=== PATIENT | female | born 1980 | race Caucasian/White ===

== ENCOUNTER 2016-07-05 12:53 | Emergency (ER) | payer OTHER ==
[~2016-07-05] VITALS: Ht 160 cm; Wt 61.6 kg
[~2016-07-05 12:53] MED LIST: HYDR-4246 PO; ONDA4TAB7 PO; TAMS-1 PO
[2016-07-05 12:58] VITALS: Ht 160 cm; Wt 61.6 kg
--- OUTSIDE RECORDS SUMMARY | 2016-07-05 12:58 | XMS REPORT | Continuity of Care Document ---
Author Author [facility] Organization [facility] Address Unknown Phone Unavailable Support Name Relationship Address Phone GABRIELA PIRES MD Caregiver [address] [place] [address] [place] [address] Unavailable ELDA ROSENBAUM DO Caregiver Unknown Unavailable CYNTHIA THORNE Next Of Kin [address] [place], [place] [id number] Insurance Providers Guarantor Fabiana Thorne Address [address] [place] [address] Email [email or web address] Payer Emanuel Two Policy Number [id number] Subscriber's Name Cynthia Thorne Relationship 01 Spouse Group Number [id number] Advance Directives Directive Response Recorded Date/Time Advanced Directives Type None 02/22/16 9:22am Chief Complaint and Reason for Visit Chief Complaint Flank Pain Reason for Visit [id number] Problems Past Problems Medical Problem Onset Date Ureteral calculus Unknown Ureteral colic Unknown Medications Current Home Medications Medication Dose Units Route Directions Days Qty Instructions Start Date Hydrocodone/Acetaminophen ([place] 5-325 Tablet) 5-325 Tablet 1-2 Tab Oral Every 4 Hours for Pain 30 Tablet 02/22/16 None 03/09/08 Ondansetron (Zofran Odt) 4 Mg Tab.rapdis 4 Mg Oral Q6h/0300,0900,1500,2100 for Nausea &/Or Vomiting 10 Tablet Oral disintegrating tablet 02/22/16 Tamsulosin Hcl (Flomax) 0.4 Mg Capsule 0.4 Mg Oral Bedtime 7 Days 7 Capsule Take 1 capsule, by mouth, one time a day at BEDTIME. 02/22/16 Social History Social History Problem Response Recorded Date/Time Onset Date Status Hx Substance Use No 02/22/2016 9:57am Not Applicable Not Applicable Hx Alcohol Use Y SOCIALLY 02/22/2016 9:57am Not Applicable Not Applicable Query Response Start Date Stop Date Smoking Status Never smoker Hospital Discharge Instructions No hospital discharge instructions. Plan of Care Discharge Date 02/22/16 11:16am Disposition 01 DISCHARGED HOME, SELF-CARE Condition at Discharge Improved Instructions/Education Provided Kidney Stones -- Adult Forms Provided Return to Work/School Permit Prescriptions See Medication Section Referrals ELDA ROSENBAUM DO Order Date: 2 Days Note: FOLLOW UP IN NEXT 2-3 DAYS FOR RE-EVALUATION AND FURTHER TREATMENT/TESTING NEEDED Additional Instructions/Education 1) DRINK PLENTY OF FLUIDS, ESPECIALLY WATER (2-3 LITERS A DAY TO FLUSH KIDNEY STONE OUT) 2) MAY TAKE NORCO 5/325 ONE OR TWO EVERY 4 HOURS NEEDED FOR SEVERE PAIN 3) MAY TAKE ZOFRAN 4 MG ODT EVERY 6 HOURS NEEDED FOR NAUSEA/VOMITING 4) FLOMAX 0.4 MG ONCE DAILY FOR NEXT 7 DAYS TO HELP FACILITATE PASSING KIDNEY STONE 5) FOLLOW UP WITH DR. ROSENBAUM IN NEXT 2-3 DAYS FOR RE-EVALUATION AND FURTHER TESTING OR TREATMENT NEEDED 6) STRAIN ALL OF YOUR URINE. TAKE ANY SEDIMENT OR STONES TO DR. ROSENBAUM FOR ANALYSIS IF SHE FEELS INDICATED. 7) RETURN TO ER FOR SEVERE PAIN NOT CONTROLLED BY MEDICATIONS, UNEXPLAINED HIGH FEVER (GREATER THAN 101 DEG F), INABILITY TO KEEP FLUIDS DOWN DUE TO VOMITING OR FURTHER CONCERNS. Care Plan and Goals Physician Care Plan Problem: 1) URETERAL STONE 2) URETERAL COLIC Goal: Follow up with primary care provider Instructions: Take medications and follow care plan as discussed/written Functional Status No functional status results. Allergies, Adverse Reactions, Alerts Allergen Type Severity Reaction Status Last Updated No Known Drug Allergies Allergy Unknown Active 02/22/16 Immunizations Query Response on File Recorded Date/Time Influenza Vaccine Hx NONE 02/22/16 9:57am Vital Signs Acute Vital Signs Vital Response Date/Time Temperature (Fahrenheit) 97.7 deg F (96.8 - 99.1) 02/22/2016 11:21am Temperature (Calculated Celsius) 36.16035 degrees C (36.0 - 37.3) 02/22/2016 11:21am Pulse Rate (adult) 80 bpm (60 - 100) 02/22/2016 11:21am Respiratory Rate 16 breaths/min (10 - 20) 02/22/2016 11:21am O2 Sat by Pulse Oximetry 98 % (90 - 100) 02/22/2016 11:21am Blood Pressure 117/78 mm Hg 02/22/2016 11:21am Height (Feet) 5 feet 02/22/2016 9:22am Height (Inches) 3.00 inches 02/22/2016 9:22am Weight (Kilograms) 56.400 kg 02/22/2016 9:22am Body Mass Index (BMI) 22.0 02/22/2016 9:22am Results Laboratory Results Test Name Result Units Flags Reference Collection Date/Time Result Date/ Time Comments White Blood Count 4.1 T/MM3 L 4.5-11.0 02/22/2016 9:45am 02/22/2016 9: 52am Red Blood Count 4.44 M/MM3 4.00-5.20 02/22/2016 9:45am 02/22/2016 9: 52am Hemoglobin 13.8 GM/DL 12-16 02/22/2016 9:45am 02/22/2016 9:52am Hematocrit 40.2 % 36-46 02/22/2016 9:45am 02/22/2016 9:52am Mean Corpuscular Volume 90.5 UM3 80-100 02/22/2016 9:45am 02/22/2016 9: 52am Mean Corpuscular Hemoglobin 31.1 UUG 26-34 02/22/2016 9:45am 2015 9:52am Mean Corpuscular Hemoglobin Concent 34.3 GM/DL 31-37 02/22/2016 9:45am 02/22/2016 9:52am RDW Standard Deviation 38.0 FL 36.9-50.2 02/22/2016 9:45am 02/22/2016 9 :52am Platelet Count 213 T/MM3 130-400 02/22/2016 9:45am 02/22/2016 9:52am Mean Platelet Volume 10.6 UM3 9.4-12.4 02/22/2016 9:45am 02/22/2016 9: 52am Neutrophils (%) (Auto) 48.9 % 33-66 02/22/2016 9:45am 02/22/2016 9: 52am Lymphocytes (%) (Auto) 34.2 % 23-45 02/22/2016 9:45am 02/22/2016 9: 52am Monocytes (%) (Auto) 11.8 % H 0-9.0 02/22/2016 9:45am 02/22/2016 9:52am Eosinophils (%) (Auto) 4.7 % H 0-4 02/22/2016 9:45am 02/22/2016 9:52am Basophils (%) (Auto) 0.2 % 0-2 02/22/2016 9:45am 02/22/2016 9:52am Immature Granulocyte % (Auto) 0.2 % 0.0-0.5 02/22/2016 9:45am 2015 9:52am Absolute Neutrophils (auto) 2.0 T/MM3 1.8-7.7 02/22/2016 9:45am 2015 9:52am Absolute Lymphocytes (auto) 1.4 T/MM3 1-4.8 02/22/2016 9:45am 2015 9:52am Absolute Monocytes (auto) 0.5 T/MM3 0-0.8 02/22/2016 9:45am 02/22/2016 9:52am Absolute Eosinophils (auto) 0.2 T/MM3 0-0.5 02/22/2016 9:45am 2015 9:52am Absolute Basophils (auto) 0.0 T/MM3 0-0.2 02/22/2016 9:45am 02/22/2016 9:52am Absolute Immature Granulocyte (auto 0.01 T/MM3 0.00-0.03 02/22/2016 9: 45am 02/22/2016 9:52am Icterus Index < 2 0-7 02/22/2016 9:45am 02/22/2016 10:01am Chemistry Specimen Hemolysis < 15 0-25 02/22/2016 9:45am 02/22/2016 10:01am 0-25: Specimen Exhibited No Hemolysis. Turbidity < 20 0-20 02/22/2016 9:45am 02/22/2016 10:01am Sodium Level 143 MEQ/L 134-144 02/22/2016 9:45am 02/22/2016 10:01am Potassium Level 3.5 MEQ/L L 3.6-5 02/22/2016 9:45am 02/22/2016 10:01am Chloride Level 103 MEQ/L 98-107 02/22/2016 9:45am 02/22/2016 10:01am Carbon Dioxide Level 28 MEQ/L 22-30 02/22/2016 9:45am 02/22/2016 10: 01am Anion Gap 12 MEQ/L 5-15 02/22/2016 9:45am 02/22/2016 10:01am Blood Urea Nitrogen 10.0 MG/DL 7-17 02/22/2016 9:45am 02/22/2016 10: 01am Creatinine 0.8 MG/DL 0.7-1.2 02/22/2016 9:45am 02/22/2016 10:01am BUN/Creatinine Ratio 13 RATIO 6-26 02/22/2016 9:45am 02/22/2016 10: 01am Glomerular Filtration Rate Calc 81 02/22/2016 9:45am 02/22/2016 10: 01am Glucose Level 97 MG/DL 65-110 02/22/2016 9:45am 02/22/2016 10:01am Calculated Osmolality 274 MOSM/KG 261-280 02/22/2016 9:45am 02/22/2016 10:01am Calcium Level 9.7 MG/DL 8.4-10.2 02/22/2016 9:45am 02/22/2016 10:01am Total Bilirubin 0.60 MG/DL 0.20-1.30 02/22/2016 9:45am 02/22/2016 10: 01am Alkaline Phosphatase 45 U/L 38-126 02/22/2016 9:45am 02/22/2016 10: 01am Total Protein 7.7 G/DL 6.3-8.2 02/22/2016 9:45am 02/22/2016 10:01am Albumin 4.4 G/DL 3.5-5.0 02/22/2016 9:45am 02/22/2016 10:01am Globulin 3.3 G/DL 2.4-3.6 02/22/2016 9:45am 02/22/2016 10:01am Albumin/Globulin Ratio 1.3 RATIO 1.1-2.2 02/22/2016 9:45am 02/22/2016 10:01am Aspartate Amino Transf (AST/SGOT) 16 U/L 14-36 02/22/2016 9:45am 2015 10:01am Alanine Aminotransferase (ALT/SGPT) 21 U/L 9-52 02/22/2016 9:45am 02/21 10:01am Lipase 37 U/L 23-300 02/22/2016 9:45am 02/22/2016 10:01am Urine Collection Type CLEANCATCH-MIDSTREAM 02/22/2016 10:16am 02/21 10:21am Urine Color YELLOW YELLOW 02/22/2016 10:16am 02/22/2016 10:21am Urine Turbidity CLEAR CLEAR 02/22/2016 10:16am 02/22/2016 10:21am Urine Specific [place] 1.025 1.015-1.025 02/22/2016 10:16am 2015 10:21am Urine pH 6.0 5.0-8.0 02/22/2016 10:16am 02/22/2016 10:21am Urine Leukocyte Esterase NEGATIVE NEGATIVE 02/22/2016 10:16am 2015 10:21am Urine Nitrite NEGATIVE NEGATIVE 02/22/2016 10:16am 02/22/2016 10: 21am Urine Protein 1+ A NEGATIVE 02/22/2016 10:16am 02/22/2016 10:21am Urine Glucose (UA) NEGATIVE NEGATIVE 02/22/2016 10:16am 02/22/2016 10 :21am Urine Ketones TRACE A NEGATIVE 02/22/2016 10:16am 02/22/2016 10:21am Urine Urobilinogen 1.0 EU/DL NORMAL 02/22/2016 10:16am 02/22/2016 10: 21am Urine Bilirubin NEGATIVE NEGATIVE 02/22/2016 10:16am 02/22/2016 10: 21am Urine Blood TRACE-LYSED A NEGATIVE 02/22/2016 10:16am 02/22/2016 10: 21am Urine WBC 1-3 /HPF 0-5 02/22/2016 10:16am 02/22/2016 10:28am Urine RBC 0-1 /HPF 0-3 02/22/2016 10:16am 02/22/2016 10:28am Urine Squamous Epithelial Cells 5-10 02/22/2016 10:16am 02/22/2016 10:28am Urine Bacteria NONE SEEN NEGATIVE 02/22/2016 10:16am 02/22/2016 10: 28am Urine Mucus PRESENT 02/22/2016 10:16am 02/22/2016 10:28am Urine Culture Indicated CULT NOT INDICATED 02/22/2016 10:16am 02/21 10:28am Name: FABIANA THORNE Unit #: [id number] : 1980 Sex: F Admit Date: Loc / Svc: ED Discharge Date: DIAGNOSTIC IMAGING REPORT [facility] [id number]: ITS.REASON: LEFT FLANK PAIN RADIATING TO LLQ PROCEDURE: CT RENAL W/O CONTRAST: Encounter: Initial Comparison: None Technique: Axial CT images were performed through the abdomen and pelvis without intravenous contrast. Coronal and sagittal two-dimensional reformats. Findings: The lung bases are clear. The unenhanced liver, gallbladder, spleen, pancreas and adrenal glands are within normal limits. Right kidney appears normal. Ureters are difficult to follow given the lack of intra-abdominal fat. No definite right ureteral stone. There is a partially obstructing stone at the left ureterovesicular junction on image #190 of thin slice series measuring 3 to 4 mm in size. This results in mild left hydronephrosis and hydroureter. No additional left renal or ureteral stones. No abdominal or pelvic adenopathy. Uterus is normal for age. Tubal ligation clips. No free fluid or evidence of a bowel obstruction. The appendix is normal. Bone windows are within normal limits. Impression: Obstructing 3 to 4 mm far distal left ureteral stone. . Procedures No known history of procedures. Encounters Encounter Location Arrival/Admit Date Discharge/Depart Date Attending Provider Departed Emergency Room [facility] 02/22/16 9:21am 02/22/16 11: 16am GABRIELA PIRES MD Recent Diagnosis
[2016-07-05] MEDS ORDERED: ACET-62 PO (13:04)
--- NOTE | 2016-07-05 13:12 | NUR ---
PROVIDER DR WATERS IN TO SEE PATIENT.
[2016-07-05 13:39] LABS: BASOPHILS % (AUTO) 0.3 % (0-2); EOSINOPHILS # (AUTO) 0.1 T/MM3 (0-0.5); HCT - HEMATOCRIT 37.6 % (36-46); HGB - HEMOGLOBIN 12.8 GM/DL (12-16); IMMATURE GRANULOCYTE # (AUTO) 0.01 T/MM3 (0.00-0.03); IMMATURE GRANULOCYTE % (AUTO) 0.2 % (0.0-0.5); LYMPHOCYTES # (AUTO) 2.2 T/MM3 (1-4.8); LYMPHOCYTES % (AUTO) 33.5 % (23-45); MEAN CORPUSCULAR HGB 30.8 UUG (26-34); MEAN CORPUSCULAR VOLUME 90.4 UM3 (80-100); MEAN PLATELET VOLUME 10.4 UM3 (9.4-12.4); MONOCYTES # (AUTO) 0.5 T/MM3 (0-0.8); MONOCYTES % (AUTO) 7.5 % (0-9.0); NEUTROPHILS #(AUTO)-ABSOLUTE 3.6 T/MM3 (1.8-7.7); NEUTROPHILS % (AUTO) 56.5 % (33-66); RED BLOOD COUNT 4.16 M/MM3 (4.00-5.20); WBC - WHITE BLOOD COUNT 6.4 T/MM3 (4.5-11.0)
--- NOTE | 2016-07-05 13:49 | NUR ---
UA PATIENT UP TO BR TO COLLECT UDS/UA. PROFESSOR OF ARCHAEOLOGY IN ROOM.
[2016-07-05 13:50] LABS: ALBUMIN 4.2 G/DL (3.5-5.0); ALBUMIN/GLOBULIN RATIO 1.4 RATIO (1.1-2.2); ALKALINE PHOSPHATASE 51 U/L (38-126); ALT (SGPT) 35 U/L (9-52); ANION GAP 7 MEQ/L (5-15); AST (SGOT) 22 U/L (14-36); BUN/CREATININE RATIO 14 RATIO (6-26); CALCIUM 9.3 MG/DL (8.4-10.2); CHLORIDE 107 MEQ/L (98-107); CO2 - CARBON DIOXIDE 28 MEQ/L (22-30); CREATININE 0.7 MG/DL (0.7-1.2); ETHANOL <10 MG/DL (<10); GLOMERULAR FILTRATION RATE 94; GLUCOSE 94 MG/DL (65-110); POTASSIUM 4.2 MEQ/L (3.6-5); SODIUM 142 MEQ/L (134-144); TOTAL PROTEIN 7.3 G/DL (6.3-8.2)
[2016-07-05 14:07] LABS: BLOOD, URINE NEGATIVE (NEGATIVE); COLOR,URINE YELLOW (YELLOW); LEUKOCYTE ESTERASE ,URINE NEGATIVE (NEGATIVE); NITRITE,URINE NEGATIVE (NEGATIVE); UROBILINOGEN,URINE 0.2 EU/DL (NORMAL)
[2016-07-05 14:18] LABS: AMPHETAMINE SCREEN,URINE NEGATIVE; BARBITURATE SCREEN,URINE NEGATIVE; BENZODIAZEPINES SCREEN,URINE NEGATIVE; CANNABINOID SCREEN,URINE NEGATIVE; COCAINE SCREEN,URINE NEGATIVE; METHADONE SCREEN, URINE NEGATIVE; METHAMPHETAMINE SCREEN, URINE NEGATIVE; OPIATE SCREEN,URINE POSITIVE; PHENCYCLIDINE SCREEN,URINE NEGATIVE; TRICYCLIC ANTIDEPRESSANT,URINE NEGATIVE
--- NOTE | 2016-07-05 14:18 | NUR ---
TO CT PER W/C.
--- NOTE | 2016-07-05 14:27 | NUR ---
BACK FROM CT
--- NOTE | 2016-07-05 14:38 | DI ---
Indication: ITS.REASON: possible seizure PROCEDURE: CT HEAD W/O CONTRAST: Encounter: Initial Comparison: None Technique: Axial CT images through the head were performed without contrast. Iterative Reconstruction dose reducing technique was utilized. FINDINGS: The ventricles are of normal size, shape, and configuration for the patient's age. There is no evidence of acute intracranial hemorrhage, midline displacement, or mass effect. The CT attenuation of the brain parenchyma is normal within the cerebellum, brain stem, and cerebral hemispheres. The tympanic cavities and mastoid air cells are free of appreciable disease. There are no definite fractures of the skull base, calvarium, or visualized portion of the midface. IMPRESSION: No CT evidence of acute intracranial abnormality. .
[2016-07-05 15:29] LABS: THYROID STIM HORMONE-TSH 3.07 MIU/L (0.47-4.68)
--- NOTE | 2016-07-05 15:30 | ERPDOC ---
Departure Disposition Decision Date: Jul 05, 2016 Disposition Decision Time: 15:29 Disposition: 01 DISCHARGED HOME, SELF-CARE Impression Impression Impression: Primary Impression: Seizure Severity: Mild Condition: Improved Seen By: Physician only Referrals: ELDA ROSENBAUM DO (Family) 1 Day NIURKA STUART MD Call tomorrow for appointment Patient Instructions: New-Onset Seizure in Adults (ED) Problems/Meds/Labs Reviewed?: Yes Medications reviewed and manag: Yes Follow up care ordered?: Yes Mental Status: Alert, Oriented HPI - General Medical General Chief Complaint: Seizure Stated Complaint: POSS SEIZURE Time Seen by Provider: 13:16 Source: patient (Patient presents to the ER following a possible seizure that occurred overnight. 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 No one witnessed the the seizure acticity, but the patient states she was incontinent of urine. ) Exam Limitations: no limitations HPI - General Medical Occurred At: home Onset: Changing over time Duration: 12-24 hrs Pain Scale: Now & Worst: 0/10 Modifying Factors: IMPROVES WITH: other Associated Symptoms: seizure, DENIES: chest pain, cough, diaphoresis, fever/ chills Allergies: Coded Allergies: No Known Drug Allergies (Verified Allergy, Unknown, 02/22/16) Past History Past Medical History Pt denies signifigant PMH Hx Echocardiogram: No Female: UTI, other Neurological: headaches Surgical History Reproductive/: tubal ligation Family History Family PMH: FOUND: other Social History Smoking Status: Unknown if ever smoked Does patient use chewing tobac: No Second Hand Exposure: No Substance Use Type: does not use Alcohol Intake: none Marital Status: Sexuality: male partner Housing: house Household Members: spouse Service: No Current Occupational Status: employed Occupational Hazard: No Advance Directives: Yes Full Code Record Review Pertinent history updated: Yes Review of Systems Constitutional Constitutional: DENIES: chills, fever Eyes Lids/Accessories: DENIES: erythema, swelling ENMT Ears: DENIES: erythema, pain Balance: DENIES: ataxia, vertigo Sinuses: DENIES: congestion, rhinorrhea Mouth/Throat: DENIES: sore throat Cardiovascular Cardiac: DENIES: chest pain, dyspnea on exertion, orthopnea Rhythm/Rate: DENIES: tachycardia Pulmonary Respiratory: DENIES: cough, dyspnea, sputum GI Upper Abdomen: DENIES: nausea, pain, vomiting Lower Abdomen: DENIES: constipation, diarrhea, pain General: DENIES: dysuria Musculoskeletal General: DENIES: cramps, pain, weakness Integumentary Skin: DENIES: color change, itching, rash Neurological General: DENIES: ataxia, change in strength, headache, numbness, poor coordination, seizures, syncope, vertigo, weakness Psychiatric Psychiatric: DENIES: anxiety, depression, nervousness Hematologic/Lymphatic Hematologic/Lymphatic: DENIES: anemia Allergic/Immunological Allergic/Immunoligical: DENIES: sneezing All other Systems All Other Systems: Reviewed and Negative Physical Exam General General Nourishment: well nourished, well developed, appears stated age, adult , thin General Body Habitus: well groomed Vitals and Pain First Documented Vital Signs Date Time Temp Pulse Resp B/P Pulse Ox O2 Delivery O2 Flow Rate FiO2 07/05/16 12:58 98.2 85 16 151/82 98 Room Air Weight: Kilograms: 61.600 Height (feet): 5 Height (inches): 3.00 Triage Pain Scale: RN VS reviewed by Provider: Yes Eyes (brief) Eyes Brief: found: EOMI, PERRL, not found: papilledema ENMT (brief) ENMT Brief: FOUND: TM clear, TM good light reflex, mucosa moist, NOT FOUND: pharnyx erythema Neck (brief) Neck: FOUND: trachea midline, NOT FOUND: adenopathy, nuchal rigidity, tenderness, tracheal deviation Respiratory (brief) Respiratory: FOUND: clear all resendiz, equal bilaterally Cardiovascular (brief) Cardiac: FOUND: regular rate, regular rhythm Capillary Refill: <2 sec Pulses: all distal extremities, equal, strong Abdomen (brief) Abdominal Brief: FOUND: bowel normo active x4, soft, NOT FOUND: distended, tender Lymphatic (brief) Lymphatic Brief: NOT FOUND: adenopathy Musculoskeletal (brief) Musculoskeletal Brief: NOT FOUND: spasm, tenderness Integumentary (brief) Integumentary Brief: FOUND: pink, warm Neurologic (brief) Neurological Brief: FOUND: CN w/o gross def to obs, gait w/o gross def to obs, motor-no gross deficits, sensory-no gross deficits, NOT FOUND: ataxia Psychiatric (brief) Psychiatric Brief: FOUND: alert, attentive, normal affect, oriented Differential Diagnoses Considering: CVA, Depression, Drug Overdose, Encephalitis, Hypo/Hyperglycemia, Hypo/Hyperkalemia, Hypo/Hypernatremia, Intracranial Hemorrhage, Meningitis, Metabolic, Psychosis, Seizure, Other Progress Results/Orders Orders Procedure Category Date Status Time Iv Lock (Ed Only) EDM 07/05/16 Transmitted 13:16 Cbc W/Auto LAB 07/05/16 Complete Diff-Reflex Manual Cmp - Comprehensive LAB 07/05/16 Complete Metabolic Ua, Dip Wreflex LAB 07/05/16 Complete Microsc & Donor Services Specialist 13:16 LAB 07/05/16 Complete Qualitative, Urine 13:16 Drug Screen LAB 07/05/16 Complete Urine-Test At [facility] [place] 13:16 Ethanol LAB 07/05/16 Complete Tsh - Thyroid Stim LAB 07/05/[address] Head W/O Contrast CT 07/05/16 Resulted Lab Results Laboratory Tests Test 07/05/16 13:34 07/05/16 14:02 White Blood Count 6.4T/MM3 Red Blood Count 4.16M/MM3 Hemoglobin 12.8GM/DL Hematocrit 37.6% Mean Corpuscular Volume 90.4UM3 Mean Corpuscular Hemoglobin 30.8UUG Mean Corpuscular Hemoglobin Concent 34.0GM/DL RDW Standard Deviation 39.2FL Platelet Count 246T/MM3 Mean Platelet Volume 10.4UM3 Immature Granulocyte % (Auto) 0.2% Neutrophils (%) (Auto) 56.5% Lymphocytes (%) (Auto) 33.5% Monocytes (%) (Auto) 7.5% Eosinophils (%) (Auto) 2.0% Basophils (%) (Auto) 0.3% Absolute Immature Granulocyte (auto 0.01T/MM3 Absolute Neutrophils (auto) 3.6T/MM3 Absolute Lymphocytes (auto) 2.2T/MM3 Absolute Monocytes (auto) 0.5T/MM3 Absolute Eosinophils (auto) 0.1T/MM3 Absolute Basophils (auto) 0.0T/MM3 Turbidity < 20 Sodium Level 142MEQ/L Potassium Level 4.2MEQ/L Chloride Level 107MEQ/L Carbon Dioxide Level 28MEQ/L Anion Gap 7MEQ/L Blood Urea Nitrogen 10.0MG/DL Creatinine 0.7MG/DL Glomerular Filtration Rate Calc 94 BUN/Creatinine Ratio 14RATIO Glucose Level 94MG/DL Calculated Osmolality 272MOSM/KG Calcium Level 9.3MG/DL Total Bilirubin 0.70MG/DL Icterus Index < 2 Aspartate Amino Transf (AST/SGOT) 22U/L Alanine Aminotransferase (ALT/SGPT) 35U/L Alkaline Phosphatase 51U/L Total Protein 7.3G/DL Albumin 4.2G/DL Globulin 3.1G/DL Albumin/Globulin Ratio 1.4RATIO Thyroid Stimulating Hormone (TSH) 3.07MIU/L Chemistry Specimen Hemolysis < 15 Alcohol, Quantitative <10MG/DL Urine Collection Type Cleancatch-midstream Urine Color Yellow Urine Turbidity Clear Urine pH 6.0 Urine Specific [place] 1.010 Urine Protein Negative Urine Glucose (UA) Negative Urine Ketones Negative Urine Blood Negative Urine Nitrite Negative Urine Bilirubin Negative Urine Urobilinogen 0.2EU/DL Urine Leukocyte Esterase Negative Urinalysis Comment Microscopic not ind. Urine Test Negative Urine Opiates Screen PositiveNG/ML Urine Oxycodone Screen NegativeNG/ML Urine Methadone Screen NegativeNG/ML Urine Propoxyphene Screen NegativeNG/ML Urine Barbiturates Screen NegativeNG/ML Urine Tricyclic Antidepressants NegativeNG/ML Urine Phencyclidine Screen NegativeNG/ML Urine Amphetamines Screen NegativeNG/ML Urine Methamphetamines Screen NegativeNG/ML Urine Benzodiazepines Screen NegativeNG/ML Urine Cocaine Screen NegativeNG/ML Urine Cannabinoids Screen NegativeNG/ML Urine Drug Screen Confirmation Sent out Urine Drug Screen Information Pending Progress Progress Patient Resting COmfortably, No seizure activity noted Consult/PCP Consult/PCP : Physician Contacted: Dr. Stuart Time Called: 15:00 Time of first response: 15:20 Type of discussion: Phone Consult/PCP Discussion Details Discussed patient examination, History, Labs and CT Comments No Driving, will follow in the office No Anti-Seizure Medications at this time FRANK WATERS DO Jul 05, 2016 15:30
[2016-07-05 15:38] VITALS: BP 145/76; PULSE 80; RESP 16; TEMP 98.2; O2SAT 99
== END 2016-07-05 15:38 | disposition home or self-care (01) ==
LOC: ED 12:53
DX: R56.9 Unspecified convulsions (principal)
CPT/HCPCS: 80053; 80306; 80307; 81003; 81025; 84443; 85025

== ENCOUNTER → 2016-07-28 | Outpatient (CLI) | payer OTHER ==
[~2016-07-28] MED LIST changes: +ACET-62 PO; +GADOBUTROL 10mMol/10ml INJECTION IV ONE; -HYDR-4246 PO; -ONDA4TAB7 PO; +SALINE FLUSH 10ml SYRINGE ONE; -TAMS-1 PO
--- NOTE | 2016-07-28 10:37 | DI ---
Indication: ITS.REASON: R56.9 Unspecified convulsions; R41.82 PROCEDURE: MRI BRAIN W/WO CONTRAST: Encounter: Initial Comparisons: Head CT dated July 05, 2016 Technique: Multiplanar, multisequence, MR imaging of the head with and without contrast was acquired. Contrast: 6 mL of Gadavist FINDINGS: The ventricles are of normal size, shape, and contour for the patient's age. The brain stem, cerebellum, and cerebral hemispheres have a normal morphologic appearance as well as MR signal intensity on all pulse sequences. Following intravenous administration of contrast, no areas of abnormal enhancement are evident. There are no areas of restricted diffusion to suggest an acute infarct. There is no evidence of an intracranial mass lesion, intracranial hemorrhage, or hydrocephalus. The visualized portions of the orbits, calvarium, paranasal sinuses, and skull base demonstrate no significant abnormality. IMPRESSION: Normal exam .
== END ==
LOC: IMA 08:29
PROVIDERS: ATTEND Psychiatry & Neurology Neurology
DX: R56.9 Unspecified convulsions (principal); R41.82 Altered mental status, unspecified
CPT/HCPCS: 70553; A9585

== ENCOUNTER → 2016-08-01 | Outpatient (CLI) | payer OTHER ==
[~2016-08-01] MED LIST changes: -GADOBUTROL 10mMol/10ml INJECTION IV ONE; -SALINE FLUSH 10ml SYRINGE ONE
== END ==
LOC: NEU 12:43
PROVIDERS: ATTEND Psychiatry & Neurology Neurology
DX: R41.82 Altered mental status, unspecified (principal)
CPT/HCPCS: 95819